=== PATIENT | female | born 1990 | race Caucasian/White ===

== ENCOUNTER 2017-04-17 14:07 | Inpatient (IN) | payer OTHER ==
[~2017-04-17] VITALS: Ht 160 cm; Wt 84.4 kg
[2017-04-17 15:31] LABS: ABSOLUTE BASOPHIL COUNT 0.1 /CUMM (0.0-0.2); ABSOLUTE EOSINOPHIL COUNT 0.1 /CUMM (0.0-0.7); ABSOLUTE GRANULOCYTE CT 10.4 /CUMM (1.4-6.5); ABSOLUTE LYMPH COUNT 1.9 /CUMM (1.2-3.4); BASOPHIL % 0.5 % (0.0-2.0); EOSINOPHIL % 0.8 % (0-5); GRANULOCYTE % 77.4 % (42.2-75.2); HEMATOCRIT 32.4 % (37-47); MEAN CORPUSCULAR HGB 27.4 PG (27.0-31.0); MEAN CORPUSCULAR HGB CONC 33.2 G/DL (33.0-37.0); MEAN CORPUSCULAR VOLUME 82.4 FL (81.0-99.0); MEAN PLATELET VOLUME 8.1 FL (7.4-10.4); PLATELET COUNT 269 /CUMM (130-400); RBC DISTRIBUTION WIDTH 12.7 % (11.5-14.5); RED BLOOD CELL CT 3.93 /CUMM (4.20-5.40); WHITE BLOOD CELL COUNT 13.4 /CUMM (4.8-10.8)
--- NOTE | 2017-04-17 16:36 | History & Physical ---
General Information and HPI MD Statement: I have seen and personally examined JAM CONN and documented this H&P. The patient is a 26 year old female at [39] weeks and [3] days gestation who presented with a chief complaint of [LEAKAGE OF FLUID]. 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 EENTM: Reports: no symptoms. Cardiovascular: Reports: no symptoms. Respiratory: Reports: no symptoms. GI: Reports: no symptoms. Genitourinary: Reports: no symptoms. Musculoskeletal: Reports: no symptoms. Skin: Reports: no symptoms. Neurological/Psychological: Reports: no symptoms. Hematologic/Endocrine: Reports: no symptoms. Immunologic/Allergic: Reports: no symptoms. All Other Systems: Reviewed and Negative Exam & Diagnostic Data Last 24 Hrs of Vital Signs/I&O Intake & Output 04/17 1600 04/17 0800 04/17 0000 Intake Total Output Total Balance Patient 186 lb Weight Obstetric Exam Wgt Gained During : 30 Pelvimetry: GYNECOID Dilation (cm): 2 Effacement (%): 0 Station: 0 Membranes: SROM Fluid: clear Fundal Height (cm): 40 Multiple Gestation? No Contractions: OCC #1 - FHR Baseline: 125 Category: 1 Estimated Weight: 7.5 Presentation: CEPHALIC Patient for Induction? No Labs Blood Type & Rh: PENDING Antibody Screen: PENDING Hct/Hgb & Platelets #1: NA Hct/Hgb & Platelets #2: 36/ Rubella: IMM VDRL #1: NR VDRL #2: NR HbsAg: NEG HIV #1: NEG HIV #2 NEG 1 Hr P Group B Strep: NEG Initial Ultrasound: WNL Anatomy Ultrasound: WNL Ultrasound for EFW: 7 Genetic Testing: NEG Last 24 Hrs of Labs/Shadi: Laboratory Tests 04/17/17 1500: CBC w Diff NO MAN DIFF REQ, RBC 3.93 L, MCV 82.4, MCH 27.4, MCHC 33.2, RDW 12.7 , MPV 8.1, Gran % 77.4 H, Lymphocytes % 13.9 L, Monocytes % 7.4, Eosinophils % 0.8, Basophils % 0.5, Absolute Granulocytes 10.4 H, Absolute Lymphocytes 1.9, Absolute Monocytes 1.0 H, Absolute Eosinophils 0.1, Absolute Basophils 0.1 04/17/17 1445: Urinalysis LIGHT H, Urine Color YEL, Urine Clarity HAZY H, Urine pH 6.0, Ur Specific [place] 1.025, Urine Protein TRACE H, Urine Ketones NEG, Urine Nitrite NEG, Urine Bilirubin NEG, Urine Urobilinogen 1.0, Ur Leukocyte Esterase NEG, Ur Microscopic SEDIMENT EXAMINED, Urine WBC 1-3 H, Ur Epithelial Cells FEW, Urine Bacteria FEW H, Urine Mucus FEW, Urine Hemoglobin NEG, Urine Glucose NEG 04/17/17 1424: Membrane Rupture POSITIVE Assessment/Plan Assessment/Plan: PROM EXPECTANT MGMT As Ranked By This Provider Problem List: 1. Core Measures Venous Thromboembolism VTE Risk Factors / No Mechanical VTE Prophylaxis d/t LowRisk-No Interven Req'd No VTE Pharm Prophylaxis d/t Bleeding (Active)
[2017-04-17 19:40] VITALS: BP 116/56
--- NOTE | 2017-04-18 08:29 | PN- Obstetrical ---
Subjective Subjective: STUFFY NOSE Objective Last 24 Hrs of Vital Signs/I&O Vital Signs Date Time Temp Pulse Resp B/P B/P Pulse O2 O2 Flow FiO2 Mean Ox Delivery Rate 04/17 1939 116/56 99.0 Physical Exam: . PE THIN WFIN NAD HEENT PERRLA EOMI ABD SOFT EFW 3700 EXT -EDEMA Obstetric Exam Dilation (cm): 4 Effacement (%): 100 Station: 0 Membranes: SROM Fluid: clear Multiple Gestation? No Contractions: Q 6 MINUTES Infant #1 - FHR Baseline: 125 Category: 1 Estimated Weight: 7.5 Presentation: CEPHALIC Assessment/Plan Assessment/Plan ASSESS TERM SROM PLAN PITOCIN PAIN MANAGEMENT AMPICILLIN
--- NOTE | 2017-04-18 11:21 | Operative Report ---
Operative/Inv Procedure Report Surgery Date: 04/18/17 Name of Procedure: Primary low flap transverse section via Pfannenstiel skin incision Pre-Operative Diagnosis: Term nonreassuring heart tracing tachycardia Post-Operative Diagnosis: Same OP Estimated Blood Loss: 500 Surgeon/Olericulture Professor: Milad OBREGON,Lexie Vaughn and Dr. Drew SagastumeFormerly [facility] Anesthesia: block Operative/Procedure Note Note: Procedure note patient was taken the operating room placed supine position after adequate anesthesia patient placed in dorsolithotomy position vagina prepped draped fashion [place] was placed patient tolerated this well at this point. Skin testing was performed from anesthesia and was found to be adequate the abdomen was prepped and draped so fashion through Pfannenstiel skin incision 2 fingerbreadths of symptoms pubis in midline skin was cut carried down to rectus fascia which was cut in curvilinear fashion I direction peritoneal cavity was entered high into the abdomen the low blade the [place] was placed lower and incision the visceral peritoneum the uterus was dissected anteriorly the uterus was nicked entered with the back of knife dissected bluntly as well as sharply on since removed from the field the infant was delivered onto the abdominal wall suction well until clear the cord was doubly clamped and cut and infant was handed mangle tender waiting delivering to aid in resuscitation placenta was delivered manually noted to be intact was wiped clean with 2 wet dry laps to ensure was free of membranes intravenous Pitocin and intramyometrial Pitocin was used to aid in uterine contractility on at this point the uterus was swabbed maternal and and uterus will be sent to pathology for analysis chorioamnionitis on the uses oversewn running locking suture 2 interrupted [id number] were used for hemostasis. Patient tolerated that well uses turned to abdominal cavity after the abdominal cavity irrigated copious amounts warm sounds are clear peritoneum was reapproximated 0 fascia was reapproximated to continue sutures 1 skin was reapproximated alberto at the end the case counts correct urine was clear mother and infant were transferred recovery room awake alert with counts correct Findings: Normal tubes and ovaries bilateral three-vessel cord OP position no fluid noted
[2017-04-19 08:17] LABS: ABSOLUTE BASOPHIL COUNT 0 /CUMM (0.0-0.2); ABSOLUTE EOSINOPHIL COUNT 0.1 /CUMM (0.0-0.7); ABSOLUTE GRANULOCYTE CT 8.9 /CUMM (1.4-6.5); ABSOLUTE LYMPH COUNT 2.1 /CUMM (1.2-3.4); ABSOLUTE MONOCYTE COUNT 1.1 /CUMM (0.10-0.60); BASOPHIL % 0.2 % (0.0-2.0); EOSINOPHIL % 0.6 % (0-5); GRANULOCYTE % 73.1 % (42.2-75.2); HEMATOCRIT 30.2 % (37-47); MEAN CORPUSCULAR HGB 27.4 PG (27.0-31.0); MEAN CORPUSCULAR HGB CONC 33.4 G/DL (33.0-37.0); MEAN PLATELET VOLUME 8.5 FL (7.4-10.4); PLATELET COUNT 218 /CUMM (130-400); RBC DISTRIBUTION WIDTH 12.9 % (11.5-14.5); RED BLOOD CELL CT 3.69 /CUMM (4.20-5.40); WHITE BLOOD CELL COUNT 12.2 /CUMM (4.8-10.8)
--- NOTE | 2017-04-19 12:43 | PN- Post Delivery/GYN ---
Subjective Subjective: NO COMPLAINTS Objective Last 24 Hrs of Vital Signs/I&O PER CHART Physical Exam: PE PALE WF IN NAD HEENT PERRLA ABD SOFT NT FUNDUS FIRM NT INCISION CDI EXT-JORGE LUIS +1 EDEMA . Assessment/Plan Assessment/Plan ASSESS S/P C/S PLAN CONT PPC
[2017-04-21] MEDS ORDERED: PERCOCET 5-3251 EACH PO (09:17)
[2017-04-21] MEDS ORDERED: IBUPROFEN800 M1 PO (09:17)
== END 2017-04-21 12:10 | DRG 540 ==
LOC: CBCO 14:07 → GNO 14:37
PROVIDERS: Specialist
PROC: 10D00Z1 Extraction of Products of Conception, Low, Open Approach (ICD-10-PCS; principal; 2017-04-18)
DX: O76 Abnormality in fetal heart rate and rhythm complicating labor and delivery (principal); Z3A.39 39 weeks gestation of pregnancy; Z37.0 Single live birth
CPT/HCPCS: 87070; 87075; 87205; GNOP; GNOS; 81001; 84112; 87086; 88307; G0463; J0131; J0290; J0690; J1200; J1650; J1885; J7120